=== PATIENT | male | born 1940 | race Hispanic/Latino ===

== ENCOUNTER 2021-06-26 14:18 | Emergency (ER) | payer MEDICARE ==
[2021-06-26 15:10] VITALS: BP 138/72
== END 2021-06-26 23:00 ==
LOC: ED 14:18
DX: T18.128A Food in esophagus causing other injury, initial encounter (principal); I10 Essential (primary) hypertension; Z98.890 Other specified postprocedural states; Z88.5 Allergy status to narcotic agent; Z79.899 Other long term (current) drug therapy; Y92.89 Other specified places as the place of occurrence of the external cause
CPT/HCPCS: 96361; 96374; 99282; J1610; J7030